=== PATIENT | male | born 1980 | race Caucasian/White ===

== ENCOUNTER 2017-08-16 11:39 | Emergency (ER) | payer BC ==
[2017-08-16 11:55] VITALS: BP 135/90
[2017-08-16] MEDS ORDERED: ACETAMINOPHEN 325 MG TABLET PO ONE (11:56)
[2017-08-16] MEDS ORDERED: ACETAMINOPHEN 325 MG TABLET ONE (11:57)
[2017-08-16] MEDS ORDERED: OXYCODONE HCL IR 5 MG TABLET PO ONE (12:26)
--- NOTE | 2017-08-16 12:28 | ER Document Report ---
HPI - HPI Patient complains to provider of: Right ankle pain Onset: Just prior to arrival Onset/Duration: Sudden Quality of pain: Throbbing Severity: Moderate Pain Level: 4 Context: Patient states he was about 3-4 feet up on a ladder when he fell injuring his right ankle. States he heard something pop. Patient also has dry skin on his hands that he would like to have looked at while he is here. Associated Symptoms: None Exacerbated by: Movement, Walking Relieved by: Denies Similar symptoms previously: No Recently seen / treated by doctor: No - ROS ROS below otherwise negative: Yes Systems Reviewed and Negative: Yes All other systems reviewed and negative - CONSTITUTIONAL Constitutional: DENIES: Fever - EENT EENT: DENIES: Congestion - NEURO Neurology: DENIES: Headache - CARDIOVASCULAR Cardiovascular: DENIES: Chest pain - RESPIRATORY Respiratory: DENIES: Trouble Breathing - GASTROINTESTINAL Gastrointestinal: DENIES: Abdominal Pain - MUSCULOSKELETAL Musculoskeletal: REPORTS: Extremity pain - Right ankle - DERM Skin Problems: Rash Past Medical History - General Information source: Patient - Social History Smoking Status: Never Smoker Frequency of alcohol use: None Drug Abuse: None Lives with: Spouse/Significant other Family History: Reviewed & Not Pertinent - Medical History Medical History: Negative Past Surgical History: Reports: Hx Orthopedic Surgery Vertical Provider Document - CONSTITUTIONAL Agree With Documented VS: Yes Exam Limitations: No Limitations - INFECTION CONTROL TRAVEL OUTSIDE OF THE [place] IN LAST 30 DAYS: No - HEENT HEENT: Atraumatic, Normocephalic - RESPIRATORY Respiratory: Breath Sounds Normal, No Respiratory Distress O2 Sat by Pulse Oximetry: 97 - CARDIOVASCULAR Cardiovascular: Regular Rate, Regular Rhythm - GI/ABDOMEN Gastrointestinal: Abdomen Soft - MUSCULOSKELETAL/EXTREMETIES Musculoskeletal/Extremeties: Tender, Edema Notes: Edema noted around right ankle. More tender to palpation medially. Neurovascular and sensation intact to right foot. - NEURO Level of Consciousness: Awake, Alert, Appropriate - DERM Integumentary: Warm, Dry, Rash - eczematic appearing rash on fingers Course - Re-evaluation Re-evalutation: 08/16/17 13:47 X-rays shows fractured right tibia distally. This was discussed with the patient and he was instructed to follow-up with orthopedics. Patient states he prefers to go to [facility] and was advised that he would need to make the appointment with them. Dr. Rodirguez client resolution specialist for the emergency room, and this number was also given to the patient. 08/16/17 14:[address] Sorensen. Have patient follow-up with orthopedic on Friday. - Vital Signs Vital signs: Temp Pulse Resp BP Pulse Ox 98.9 F 85 22 H 135/90 H 97 08/16/17 11:52 08/16/17 11:52 08/16/17 11:52 08/16/17 11:52 08/16/17 11:52 Procedures - Immobilization Right Leg Pre-Proc Neuro Vasc Exam: Normal Immobilizer type: Short Leg Posterior Performed by: PCT Post-Proc Neuro Vasc Exam: Normal Alignment checked and good: Yes Discharge - Discharge Clinical Impression: Rash Fracture of distal end of tibia Qualifiers: Encounter type: initial encounter Fracture type: closed Fracture morphology: unspecified fracture morphology Laterality: right Qualified Code(s): S82.301A - Unspecified fracture of lower end of right tibia, initial encounter for closed fracture Condition: Good Disposition: HOME, SELF-CARE Instructions: Use of Crutches ([facility]), Ice & Elevation ([facility]), Oral Narcotic Medication ([facility]) Additional Instructions: Ice and elevate leg Ibuprofen and/or Percocet as needed for pain Use crutches to keep weight off right leg Follow-up with orthopedic of your choice, or orthopedic client resolution specialist for the emergency room. His name and number will be provided for you. Call Friday for follow-up appointment with orthopedic Apply cream to rash as directed, this rash looks like a form of eczema Follow-up with your primary care doctor for recheck of rash Return as needed Prescriptions: Mometasone Furoate [Elocon] 15 gm TP DAILY #15 oint...g. Oxycodone HCl/Acetaminophen [Percocet 5-325 mg Tablet] 1 - 2 tab PO ASDIR PRN # 25 tablet PRN Reason: Forms: Return to Work Referrals: BERNICE MALIN MD [Primary Care Provider] - Follow up as needed CHRISTAL MAYBERRY MD [ACTIVE STAFF] - Follow up as needed
--- NOTE | 2017-08-16 13:16 | RADIOLOGY REPORT (SQ) ---
EXAM DESCRIPTION: ANKLE RIGHT COMPLETE COMPLETED DATE/TIME: 08/16/2017 12:52 pm REASON FOR STUDY: injury COMPARISON: None. NUMBER OF VIEWS: Three views right ankle. LIMITATIONS: None. FINDINGS: Comminuted extensive intra-articular fracture of the distal tibia. Wide separation of art icular surface fragments likely based on lateral view. Fibula looks relatively intact without displa jakob fracture. Talar dome intact. Hindfoot intact. OTHER: No other significant finding. IMPRESSION: Extensive intra-articular distal tibial comminuted fracture with loss of articular surfa ce integrity. TECHNICAL DOCUMENTATION: JOB ID: [id number]
== END 2017-08-16 14:15 | disposition home or self-care (01) ==
LOC: ER 11:39
PROC: 2W3QX1Z Immobilization of Right Lower Leg using Splint (ICD-10-PCS; principal; 2017-08-16)
DX: R21 Rash and other nonspecific skin eruption (principal); S82.301A Unspecified fracture of lower end of right tibia, initial encounter for closed fracture; W11.XXXA Fall on and from ladder, initial encounter
CPT/HCPCS: 99283

== ENCOUNTER → 2017-08-21 | Outpatient (CLI) | payer BC ==
--- NOTE | 2017-08-21 14:39 | RADIOLOGY REPORT (SQ) ---
EXAM DESCRIPTION: CT RT LOWER EXTREMITY WITHOUT COMPLETED DATE/TIME: 08/21/2017 1:36 pm REASON FOR STUDY: M25.571 PAIN IN RIGHT ANKLE AND JOINTS OF RIGHT FOOT S82.871S DISPLACED PIL M25.57 1 PAIN IN RIGHT ANKLE AND JOINTS OF RIGHT FOOT S82.871S DISPLACED PILON FRACTURE OF RIGHT TIBIA, SE PEREIRA COMPARISON: 08/16/2017 TECHNIQUE: CT scan of the right ankle performed without intravenous or oral contrast. Images review ed with soft tissue and bone windows. Reconstructed coronal and sagittal MPR images reviewed. All i mages stored on PACS. Additional 3D shaded surface display images of the right ankle were generated on an independent works tation, saved to pacs All CT scanners at this facility use dose modulation, iterative reconstruction, and/or weight based d osing when appropriate to reduce radiation dose to as low as reasonably achievable (ALARA). [facility]: Dose Right [facility]: CareDose [facility]: Dose Right [facility]: Teradose 4D [facility]: [employer] RADIATION DOSE: CT Rad equipment meets quality standard of care and radiation dose reduction techniq ues were employed. CTDIvol: 4.6 mGy. DLP: 101 mGy-cm. mGy. LIMITATIONS: None. FINDINGS: Normal bone density. No lytic or blastic lesions. Comminuted intra-articular distal tibial fracture is present. There is disruption of the articular s urface, with anterior displacement of a large anterior fragment, and articular surface impaction or d epression along the posterior half of the tibial articular surface. These changes are best shown on sagittal images 17 through 31. There is a small entrapped fragment between the anterior distal tibial fragment and articular surface talar dome about 7 to 8 mm in diameter, best shown on coronal reconstruction image 32 and sagittal i mage 17. This fragment is between the lateral aspect of the talar dome and the lateral aspect of the distal tibia. There is widening of the joint space between the lateral malleolus and talus, with small avulsion fra gments in the fibulotalar joint. A transverse medial malleolar fracture is present, without definite medial ankle mortise widening. Talus, calcaneus, tarsal bones are unremarkable, aside from a tiny plantar calcaneal spur. Tarsal bones, proximal most metatarsals are intact. No was bronchi injury is seen. There is diffuse lateral soft tissue swelling. As skin blister is present over the lateral soft tiss ues of the ankle. Grossly intact tendons at the ankle joint. IMPRESSION: Comminuted intra-articular distal tibial fracture is present. Small bone fragment betwe en the distal tibia and talar dome. Widening of the lateral ankle mortise. Nondisplaced medial mall eolar fracture without disruption of the medial ankle mortise. TECHNICAL DOCUMENTATION: JOB ID: [id number] Quality ID # [id number]: Final reports with documentation of one or more dose reduction techniques (e.g., Au tomated exposure control, adjustment of the mA and/or kV according to patient size, use of iterative reconstruction technique) 2010 [employer]- All Rights Reserved
== END ==
LOC: RAD 13:19
PROVIDERS: ATTEND Physician Assistant
DX: S82.871S Displaced pilon fracture of right tibia, sequela (principal); X58.XXXS Exposure to other specified factors, sequela; M25.571 Pain in right ankle and joints of right foot